=== PATIENT | male | born 1985 | race Caucasian/White ===

== ENCOUNTER 2023-11-01 13:24 | Emergency (ER) | payer OTHER ==
[2023-11-01 13:29] VITALS: BP 152/97; PULSE 100; RESP 20; TEMP 97.7; BMI 34.2
[2023-11-01] MEDS ORDERED: ACETAMINOPHEN 500 MG TABLET (FP) ONE (15:21)
[2023-11-01] MEDS ORDERED: IBUPROFEN 600 MG TABLET (FP) PO ONE (15:37)
[2023-11-01] MEDS: ACETAMINOPHEN 500 MG TABLET (FP) PO ONE (15:38)
[2023-11-01] MEDS: IBUPROFEN 600 MG TABLET (FP) PO ONE (15:48)
== END 2023-11-01 16:00 | disposition home or self-care (01) ==
LOC: JER 13:24
DX: S93.401A Sprain of unspecified ligament of right ankle, initial encounter (principal); S93.601A Unspecified sprain of right foot, initial encounter; W10.9XXA Fall (on) (from) unspecified stairs and steps, initial encounter
CPT/HCPCS: 73610-TC-RT-FY; 73630-TC-RT-FY; 99283-25

== ENCOUNTER 2023-12-23 18:38 | Emergency (ER) | payer SELFPAY ==
[2023-12-23 18:49] VITALS: TEMP 97.9; BMI 44.6
[2023-12-23] MEDS ORDERED: ACETAMINOPHEN INJECTION 100 ML ONE (20:47)
[2023-12-23] MEDS ORDERED: ONDANSETRON 4 MG/2 ML VIAL ONE (20:47)
[2023-12-23] MEDS: SODIUM CHLORIDE 1,000 ML IV STA (21:03)
[2023-12-23] MEDS: ACETAMINOPHEN 1000 MG/100 ML BAG IVPB ONE (21:03)
[2023-12-23] MEDS: ONDANSETRON 4 MG/2 ML VIAL IVPUSH ONE (21:04)
[2023-12-23 21:06] LABS: BASO % 0.9 % (0-2.0); EOS % 2.7 % (0-4.5); HEMATOCRIT 45.1 % (35.4-49); HEMOGLOBIN 15.2 GM/dL (11.7-16.9); LYMPH % 20.4 % (8-40); MCH 29.4 pg (25.7-33.7); MCHC 33.6 g/dl (32.0-35.9); MEAN CELL VOLUME 87.4 fl (80-96); MEAN PLT VOLUME 8.6 fl (7.5-11.1); MONO % 8.1 % (3.8-10.2); NEUT % 67.9 % (42.8-82.8); PLATELET COUNT 315 10^3/uL (134-434); POTASSIUM 4.1 mmol/L (3.5-5.1); RBC 5.16 M/mm3 (4.00-5.60); WHITE BLOOD COUNT 6.5 K/mm3 (4.0-10.0)
[2023-12-23 21:09] LABS: ALBUMIN 4.3 g/dl (3.4-5.0); BLOOD UREA NITROGEN 14.6 mg/dL (7-18); CALCIUM 9.4 mg/dL (8.5-10.1)
[2023-12-23 21:11] LABS: EPI CELLS 5 /uL (0-25.1); HYALINE CASTS 1 /uL (0-3.1); URINE APPEARANCE CLEAR; URINE BACTERIA 8 /uL (0-1359); URINE BILIRUBIN NEGATIVE (NEGATIVE); URINE COLOR YELLOW; URINE GLUCOSE (UA) NEGATIVE (NEGATIVE); URINE KETONE NEGATIVE (NEGATIVE); URINE LEUK ESTERASE NEGATIVE (NEGATIVE); URINE NITRITE NEGATIVE (NEGATIVE); URINE PROTEIN 1+ (NEGATIVE); URINE RBC 13 /uL (0-23.9); URINE UROBILINOGEN 0.2 mg/dL (0.2-1.0); URINE WBC 12 /uL (0-25.8)
[2023-12-23 21:13] LABS: CREATININE 1.2 mg/dL (0.55-1.3)
[2023-12-23 21:14] LABS: BILIRUBIN,TOTAL 0.5 mg/dL (0.2-1); TOT PROT 7.7 g/dl (6.4-8.2)
[2023-12-23 22:38] VITALS: BP 122/86; PULSE 74; RESP 16
== END 2023-12-23 23:57 | disposition home or self-care (01) ==
LOC: JER 18:38
PROC: 3E033NZ Introduction of Analgesics, Hypnotics, Sedatives into Peripheral Vein, Percutaneous Approach (ICD-10-PCS; principal; 2023-12-23)
PROC: 3E033GC Introduction of Other Therapeutic Substance into Peripheral Vein, Percutaneous Approach (ICD-10-PCS; 2023-12-23)
PROC: 3E0337Z Introduction of Electrolytic and Water Balance Substance into Peripheral Vein, Percutaneous Approach (ICD-10-PCS; 2023-12-23)
DX: N45.1 Epididymitis (principal); M54.50 Low back pain, unspecified; R11.0 Nausea; X50.0XXA Overexertion from strenuous movement or load, initial encounter; Y99.0 Civilian activity done for income or pay
CPT/HCPCS: 36415; 76870-TC; 80053; 81003; 85025; 87086; 99284-25; J0131